=== PATIENT | female | born 1995 | race Caucasian/White ===

== ENCOUNTER 2016-09-06 13:13 | Emergency (ER) | payer OTHER ==
[2016-09-06 13:26] VITALS: BP 120/61
--- NOTE | 2016-09-06 13:37 | UC ---
Upper Extremity HPI - HPI Summary HPI Summary: Patient was at work she is a [employer]. she was working felt a sharp pain behind the right shoulder. radiated up the neck and into the arm with movement - History of Current Complaint Chief Complaint: UCUpperExtremity Stated Complaint: RIGHT SHOULDER/BACK PAIN Time Seen by Provider: 09/06/16 13:29 Hx Obtained From: Patient Hx Last Menstrual Period: 08/14/16 ?: No Onset/Duration: Sudden Onset, Lasting Hours Severity Initially: Severe Severity Currently: Moderate Location Of Pain: Is Discrete @ - right scapula Character: Sharp - with movment, Dull, Throbbing Aggravating Factor(s): Movement Alleviating Factor(s): Nothing - Allergies/Home Medications Allergies/Adverse Reactions: Allergies Allergy/AdvReac Type Severity Reaction Status Date / Time Sulfamethoxazole Allergy Rash Verified 09/06/16 13:26 w/Trimethoprim [From Bactrim] PMH/Surg Hx/FS Hx/Imm Hx Previously Healthy: Yes - Surgical History Surgical History: Yes Surgery Procedure, Year, and Place: wisdom teeth. right middle finger cyst removal - Family History Known Family History: Negative: Cardiac Disease, Hypertension - Social History Alcohol Use: Occasionally Substance Use Type: None Smoking Status (MU): Never Smoked Tobacco Review of Systems Constitutional: Negative Skin: Negative Eyes: Negative ENT: Negative Respiratory: Negative Cardiovascular: Negative Gastrointestinal: Negative Genitourinary: Negative Motor: Negative Neurovascular: Negative Musculoskeletal: Arthralgia, Decreased ROM, Myalgia Neurological: Headache Psychological: Negative All Other Systems Reviewed And Are Negative: Yes Physical Exam Triage Information Reviewed: Yes Appearance: Well-Appearing, Well-Nourished, Pain Distress Vital Signs: Initial Vital Signs Temp 98.4 F 09/06/16 13:21 Pulse 72 09/06/16 13:21 Resp 14 09/06/16 13:21 BP 120/61 09/06/16 13:21 Pulse Ox 100 09/06/16 13:21 Vital Signs Reviewed: Yes Eye Exam: Normal Eyes: Positive: Conjunctiva Clear ENT Exam: Normal ENT: Positive: Hearing grossly normal, Pharynx normal, TMs normal Dental Exam: Normal Neck exam: Normal Neck: Positive: Supple, Nontender, No Lymphadenopathy Respiratory Exam: Normal Respiratory: Positive: Chest non-tender, Lungs clear, Normal breath sounds Cardiovascular Exam: Normal Cardiovascular: Positive: RRR, No Murmur, Pulses Normal Abdominal Exam: Normal Abdomen Description: Positive: Nontender, No Organomegaly, Soft Bowel Sounds: Positive: Present Musculoskeletal: Positive: Strength Intact, ROM Limited @ - in AROM neck Lat flexion to the left, forward flexion, Shoulder ext and abd and Flexion, Other: - palpable spasm of the levator scapulae in the right side, pain remains in the same position with all movements. Neurological Exam: Normal Psychological Exam: Normal Skin Exam: Normal Upper Extremity Course/Dx - Course Course Of Treatment: hx obtained. exam performed, meds reviewed, shoulder assessment performed. felxeril prescribed. educated on treatment. - Differential Dx/Diagnosis Differential Diagnosis/HQI/PQRI: Contusion, Fracture (Closed), Strain, Sprain Provider Diagnoses: levator scapulae strain. muscle spasm. shoulder pain Discharge - Discharge Plan Condition: Stable Disposition: HOME Patient Education Materials: Muscle Strain (ED) Additional Instructions: 1. Use the sling for rest and support. 2. Flexeril to treat the spasm, do not use when driving 3. heat the area and mild pain free stretching frequenty throughout the day.
== END 2016-09-06 13:57 | disposition home or self-care (01) ==
LOC: UCCORT 13:13
DX: S46.911A Strain of unspecified muscle, fascia and tendon at shoulder and upper arm level, right arm, initial encounter (principal); X58.XXXA Exposure to other specified factors, initial encounter; Y93.F9 Activity, other caregiving; Y92.9 Unspecified place or not applicable; Y99.0 Civilian activity done for income or pay; M62.838 Other muscle spasm; Z88.2 Allergy status to sulfonamides
CPT/HCPCS: 99202; G0463